=== PATIENT | male | born 1955 | race Two or more races ===

== ENCOUNTER 2022-02-11 00:08 | Emergency (ER) | payer MEDICARE, OTHER ==
[~2022-02-11] VITALS: Ht 182.9 cm; Wt 100.0 kg
[2022-02-11] MEDS ORDERED: LORazepam 2MG/ML-1ML VIAL IM ONE (00:30)
[2022-02-11 02:12] LABS: Basophils # (auto) 0 10 ^3/uL (0-0.2); Basophils % (auto) 0.4 % (0.0-2.0); Eosinophils # (auto) 0 10 ^3/uL (0-0.8); Eosinophils % (auto) 0.3 % (0.0-7.0); Hemoglobin 14.3 g/dL (13.5-17.5); Lymphocytes # (auto) 0.9 10 ^3/uL (0.4-5.4); Lymphocytes % (auto) 8.8 % (10.0-50.0); Mean Corpuscular Hemoglobin 31.8 pg (28.0-32.0); Mean Corpuscular Hgb Conc. 32.4 g/dL (32.0-36.0); Mean Corpuscular Volume 97.9 fL (80.0-100.0); Monocytes # (auto) 0.7 10 ^3/uL (0-1.3); Monocytes % (auto) 7.2 % (0.0-12.0); Neutrophils # (auto) 8.2 10 ^3/uL (1.6-8.6); Neutrophils % (auto) 83.3 % (37.0-80.0); Red Cell Distribution Width 13.5 % (11.8-14.3); White Blood Cell 9.8 10^3/uL (4.4-10.8)
[2022-02-11 02:30] LABS: Albumin 3.5 g/dL (3.4-5.0); Anion Gap 8 (5-15); Blood Urea Nitrogen 11 mg/dL (7-18); Calcium 8.4 mg/dL (8.5-10.1); Carbon Dioxide 27 mmol/L (21-32); Chloride 108 mmol/L (98-107); Glucose 128 mg/dL (74-106); Potassium 3.3 mmol/L (3.5-5.1); Sodium 143 mmol/L (136-145)
[2022-02-11 02:33] LABS: BUN/Creatinine Ratio 12.2
[2022-02-11 02:34] LABS: Alanine Aminotransferase 26 U/L (16-61); Alkaline Phosphatase 44 U/L (45-117); Aspartate Aminotransferase 30 U/L (15-37); Bilirubin, Total 1.2 mg/dL (0.2-1.0); Blood Alcohol < 3.0 mg/dL (0-5); GFR African American 109 mL/min; GFR Non-African American 90 mL/min; Total Protein 6.3 g/dL (6.4-8.2)
[2022-02-11 04:00] VITALS: BP 134/74
== END 2022-02-11 05:06 | disposition home or self-care (01) ==
LOC: EDBD 00:08 → ER 00:08
DX: G40.89 Other seizures (principal); F10.239 Alcohol dependence with withdrawal, unspecified; I10 Essential (primary) hypertension; Y90.0 Blood alcohol level of less than 20 mg/100 ml
CPT/HCPCS: 36415; 70450; 80053; 80320; 82962; 85025; 96372